=== PATIENT | male | born 1960 | race Caucasian/White ===

== ENCOUNTER → 2019-02-12 | Outpatient (CLI) | payer BC ==
[~2019-02-12] MED LIST: GLMP2T PO; LISI1TAB10 PO
--- NOTE | 2019-02-12 11:01 | Diagnostic Imaging Report ---
INDICATION: Right shoulder pain, history of tendon surgery. AP, oblique, and transscapular and transaxillary views of the right shoulder are obtained. No fracture or acute bony abnormality seen. The glenohumeral joint and AC joint appear unremarkable. Two anchor screws are visualized over the proximal humeral shaft. IMPRESSION: Postoperative changes. No acute bony abnormality. Dictated by: Dictated on workstation # [id number]
== END ==
LOC: RAD FS 10:29
PROVIDERS: ATTEND Nurse Practitioner
DX: M25.511 Pain in right shoulder (principal); Z98.890 Other specified postprocedural states
CPT/HCPCS: 73030

== ENCOUNTER → 2019-02-26 | Outpatient (CLI) | payer BC ==
--- NOTE | 2019-02-26 17:07 | Diagnostic Imaging Report ---
MRI RT UPPER EXT JOINT W/O TECHNIQUE: Multiplanar, multisequence MR imaging of the right shoulder was performed without contrast. COMPARISON: Right shoulder radiographs of 02/12/2019. INDICATION: Right shoulder pain with decreased range of motion. FINDINGS: Rotator cuff: Full-thickness incomplete tear of the supraspinatus with the torn fibers retracted to the level of the midhumeral head. Mild fatty atrophy of the supraspinatus is present. There is also a full-thickness incomplete tear of the subscapularis which is retracted to the level of the glenohumeral joint. Mild fatty atrophy of the subscapularis is also present. Infraspinatus and teres minor are intact. Glenoid labrum: There appears to be degenerative tearing of the anterior and superior glenoid labrum. No paralabral cyst. Long head of biceps: Biceps tenodesis has been performed. Bones and cartilage: Humeral head is normal in morphology without fracture or focal osseous lesion. Potential articular cartilage loss in the superior aspect of the humeral head. Very mild degenerative changes of the acromioclavicular joint. Soft tissues: No glenohumeral joint effusion. No MRI findings to suggest adhesive capsulitis. There is fluid in the subacromial subdeltoid space, compatible with full-thickness cuff tear. IMPRESSION: 1. Full-thickness and complete tears of both the supraspinatus and subscapularis. Each have associated mild muscle belly atrophy. 2. Biceps tenodesis. 3. Degenerative tearing of the superior and anterior glenoid labrum. Dictated by: Dictated on workstation # [id number]
== END ==
LOC: RAD 13:36
PROVIDERS: ATTEND Nurse Practitioner
DX: S46.811A Strain of other muscles, fascia and tendons at shoulder and upper arm level, right arm, initial encounter (principal); S43.491A Other sprain of right shoulder joint, initial encounter; M75.121 Complete rotator cuff tear or rupture of right shoulder, not specified as traumatic
CPT/HCPCS: 73221

== ENCOUNTER → 2019-09-18 | Outpatient (REF) ==
--- NOTE | 2019-09-18 13:19 | Diagnostic Imaging Report ---
INDICATION: Fall with left-sided chest pain. FINDINGS: There is no lung contusion, pneumothorax or hemothorax. There is no free air beneath the left diaphragm. There would appear to be old healed deformities to the left lateral and posterolateral fourth, fifth, sixth and seventh ribs. An acute or lucent fracture could not be radiographically detected however given superimposition of clearly old injuries, nondisplaced acute fractures could easily be radiographically occult. IMPRESSION: Multiple old healed rib deformities. No acute chest wall pathology or acute pulmonary parenchymal or pleural injury demonstrated. Dictated by: Dictated on workstation # [id number]
--- NOTE | 2019-09-18 14:10 | Diagnostic Imaging Report ---
INDICATION: Fall, pain. FINDINGS: There is partial visualization of multiple what appear to be old healed lateral and posterolateral left rib deformities. No visualized acute fracture. 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 No radiopaque intra-articular loose body. The clavicle and AC joint are nonacute. IMPRESSION: No acute-appearing abnormality. Dictated by: Dictated on workstation # [id number]
== END | disposition home or self-care (01) ==
LOC: OCC 12:11
PROVIDERS: ATTEND Nurse Practitioner Family
CPT/HCPCS: 71100; 73030

== ENCOUNTER → 2019-09-21 | Outpatient (REF) | payer BC ==
--- NOTE | 2019-09-21 14:07 | Diagnostic Imaging Report ---
PROCEDURE: MRI left upper extremity without contrast. TECHNIQUE: Multiplanar, multisequence non contrast-enhanced MRI of the left upper extremity was accomplished. INDICATION: Left shoulder pain after fall. COMPARISON: Radiographs from 09/18/2019. FINDINGS: No acute fracture is seen in the left shoulder. Alignment appears normal. No significant joint effusion is seen. There is a moderate-sized full-thickness tear of the supraspinatus tendon measuring approximately 2 cm in width. There is tendinosis and low-grade partial tearing of the infraspinatus tendon. The teres minor tendon is intact. The subscapularis tendon demonstrates a small high-grade partial-thickness tear measuring 9 mm in width. There is tendinosis of the tendon as well. There is mild muscular atrophy of the subscapularis muscle. The long head of the biceps tendon is dislocated medially from the bicipital groove, perched on the lesser tuberosity. The tendon appears to be completely torn proximally as well. The glenoid labrum is suboptimally evaluated in the absence of intra-articular contrast, but no paralabral cyst is seen. The acromion has a slightly curved undersurface without hooking. The coracoclavicular and coracoacromial ligaments are intact. There are mild degenerative changes in the acromioclavicular joint. There is moderate edema about the supraspinatus and subscapularis musculature. IMPRESSION: 1. Moderate-sized full-thickness tear of the anterior supraspinatus tendon. Small near full-thickness tear of the subscapularis tendon. There is mild muscular atrophy of the subscapularis. 2. Medial dislocation and complete tear of the proximal long head of the biceps tendon. Dictated by: Dictated on workstation # [id number]
== END ==
LOC: RAD 12:15
PROVIDERS: ATTEND Nurse Practitioner Family
DX: S43.005A Unspecified dislocation of left shoulder joint, initial encounter (principal); S46.112A Strain of muscle, fascia and tendon of long head of biceps, left arm, initial encounter; M75.122 Complete rotator cuff tear or rupture of left shoulder, not specified as traumatic
CPT/HCPCS: 73221

== ENCOUNTER → 2021-05-11 | Outpatient (REF) ==
--- NOTE | 2021-05-11 09:13 | Diagnostic Imaging Report ---
INDICATION: Fall. Cabinet fell on the right foot, pain. TIME OF EXAM: 9:02 AM FINDINGS: There is partially threaded screw transfixing the 5th metatarsal. No bunion deformities noted. There appear to be old fracture deformities involving the 2nd, 3rd, 4th and 5th metatarsals. No acute fracture seen. Phalanges are intact. Midfoot and hindfoot are unremarkable. IMPRESSION: Chronic fracture deformities of the right foot, as described. No definite acute fracture is detected. Dictated by: Dictated on workstation # [id number]
== END ==
LOC: OCC 08:48
PROVIDERS: ATTEND Family Medicine
DX: S92.321A Displaced fracture of second metatarsal bone, right foot, initial encounter for closed fracture (principal); S92.331A Displaced fracture of third metatarsal bone, right foot, initial encounter for closed fracture; S92.341A Displaced fracture of fourth metatarsal bone, right foot, initial encounter for closed fracture; S92.351A Displaced fracture of fifth metatarsal bone, right foot, initial encounter for closed fracture; W19.XXXA Unspecified fall, initial encounter
CPT/HCPCS: 73630